=== PATIENT | male | born 1985 | race Caucasian/White ===

== ENCOUNTER 2016-12-17 11:03 | Day surgery (SDC) | payer OTHER ==
[2016-12-15 14:42] VITALS: BMI 26.4
[~2016-12-17 11:03] MED LIST: LACTATED RINGERS 1,000 ML IV SCH
[2016-12-17] MEDS ORDERED: LIDOCAINE 1% 20 ML VIAL (10MG/ML) FOR IV START SQ ONE (11:13)
[2016-12-17] MEDS ORDERED: PROPOFOL 10 MG/ML 20 ML VIAL IV ONE (11:52)
[2016-12-17 12:15] VITALS: RESP 16
--- NOTE | 2016-12-17 12:22 | P.PCN ---
Date of Procedure: 12/17/16 Preoperative Diagnosis: Postoperative Diagnosis: Procedure(s) Performed: Procedure: Colonoscopy and biopsy. Preoperative diagnosis: Screening colonoscopy. Postoperative diagnosis: Exam within the colon and terminal ileum within normal limits. Preparation: HalfLytely prep. Sedation: Was provided by anesthesia. Brief clinical history: The patient is a 31-year-old male who is referred for this evaluation for screening because of history of irritable bowel syndrome and family history of colitis in his paternal uncle. Procedure: With the patient on his left lateral decubitus position and after informed consent and adequate sedation, the perianal area was inspected and it did not show any fissures or fistulas. There were no masses felt on digital rectal examination. The Olympus CFQ 160L video colonoscope was then inserted in the rectum in the usual fashion and advanced to the cecum. I intubated the ileocecal valve and examined the terminal ileum. TI and colon appeared healthy with no edema, erythema, friability, ulceration, exudation or spontaneous bleeding. No polyps or tumors were seen. No obvious diverticular disease or other pathology. I retroflexed endoscope in the rectum before the endoscope was withdrawn. The patient tolerated the procedure well. Plan: The patient was reassured. He will follow up with you as planned. Further plans based on his course and biopsy results. Implants: Indications for Procedure: Operative Findings: Description of Procedure:
[2016-12-17 12:38] VITALS: BP 136/84; PULSE 70
== END 2016-12-17 12:49 | disposition home or self-care (01) ==
LOC: ORWHC2ENDO 11:03
DX: Z12.11 Encounter for screening for malignant neoplasm of colon (principal); Z84.89 Family history of other specified conditions; Z88.0 Allergy status to penicillin
CPT/HCPCS: 88305; 45380; J2704